=== PATIENT | female | born 1985 | race African-American/Black ===

== ENCOUNTER 2016-12-19 16:18 | Emergency (ER) | payer OTHER ==
[2016-12-19 16:25] VITALS: BP 121/73; PULSE 77; TEMP 98.3; BMI 20.9
--- NOTE | 2016-12-19 17:34 | PDOC ---
History of Present Illness - General Chief Complaint: Blood/Body Fluid Exposure SJR Stated Complaint: NEEDLE STICK Time Seen by Provider: 12/19/16 17:29 - History of Present Illness Initial Comments: 12/19/16 18:21 Pt. is a 31 y/o female with no PMH who presents to the ED after being stuck by a needle at work. Pt. is concerned because she knows that the needle was dirty and that the pt who used the needle has HEP C. She presents for post exposure labs. She was stuck in the R hand. Pt did not see blood after the stick. She immediately washed her hand. Denies hand pain, fevers, chills, nausea, vomiting , or recent illness. Tetanus and Hep B are up to date. Past History - Past Medical History Allergies/Adverse Reactions: Allergies Allergy/AdvReac Type Severity Reaction Status Date / Time No Known Allergies Allergy Verified 12/19/16 16:22 Home Medications: Ambulatory Orders NK [No Known Home Medication] 12/19/16 Other medical history: DENIES. - Psycho/Social/Smoking Cessation Hx Suicidal Ideation: No Smoking History: Never smoked *Physical Exam - Vital Signs Last Vital Signs Temp Pulse Resp BP Pulse Ox 98.3 F 77 19 121/73 100 12/19/16 16:22 12/19/16 16:22 12/19/16 16:22 12/19/16 16:22 12/19/16 16:22 - Physical Exam General Appearance: Yes: Nourished, Appropriately Dressed. No: Apparent Distress Extremity: positive: Normal Capillary Refill, Normal Inspection, Normal Range of Motion Integumentary: positive: Normal Color, Dry, Warm. negative: Other (no obvious bleeding from her R hand.) ED Treatment Course - LABORATORY CBC & Chemistry Diagram: 12/19/16 17:50 12/19/16 17:50 Medical Decision Making - Medical Decision Making 12/19/16 18:21 Pt. is a 31 y/o female with no PMH who presents to the ED after being stuck by a needle at work. Pt. is concerned because she knows that the needle was dirty and that the pt who used the needle has HEP C. Will initiate Exposure order set. Pt refuses prophylaxis treatment. Tetanus shot is UTD. 12/19/16 20:07 HIV testing is negative at this time. Explained that the Hep panels are send outs and will not have results tonight. Pt. knows to call back in the next few days. Gave pt. follow up with the [facility]. She states she will follow with her PCP. Pt. states she is ready for discharge. All questions were answered and pt understands all discharge instructions. *DC/Admit/Observation/Transfer Diagnosis at time of Disposition: Needle stick injury, Exposure to blood or body fluid - Discharge Dispostion Disposition: HOME Condition at time of disposition: Good Admit: No - Referrals Referrals: STAFF,NOT ON [Primary Care Provider] - Radha Yen MD [Staff Physician] - - Patient Instructions Printed Discharge Instructions: How to Handle Body Fluid Exposure -- Healthcare Worker Additional Instructions: You were stuck by a needle today. Your testing was negative. Your hepatitis testing has not resulted yet as the test needs to be sent out. You can call to follow up with your results. Follow up with the [facility] for further testing. A doctors name from the center is in the referral section. Keep your hand clean and with antibiotic ointment over the area. Return to the ED if you have fevers, chills, nausea, vomiting, or any changes in your symptoms. - Post Discharge Activity Work/School Note: Back to Work
[2016-12-19 18:05] LABS: BASOPHIL 1.3 % (0-2.0); MCH 29.2 pg (25.7-33.7); MCHC 33.2 g/dl (32.0-36.0); MEAN PLT VOLUME 10.3 fl (7.5-11.1); NEUTROPHILS 46.3 % (42.8-82.8); PLATELET COUNT 194 K/MM3 (134-434); RDW 13.2 % (11.6-15.6); WHITE BLOOD COUNT 4.9 K/mm3 (4.0-10.0)
[2016-12-19 18:39] LABS: ALBUMIN 3.8 g/dl (3.4-5.0); ANION GAP 4 (8-16); BILIRUBIN,TOTAL 0.5 mg/dL (0.2-1.0); CO2 30 mmol/L (21-32); CREATININE 0.6 mg/dL (0.55-1.02); GLUCOSE,RANDOM 87 mg/dL (74-106); SGOT/AST 19 U/L (15-37); SGPT/ALT 27 U/L (12-78); TOT PROT 7.8 g/dl (6.4-8.2)
[2016-12-19 18:40] LABS: ALK PHOS 85 U/L (45-117)
[2016-12-19 18:51] LABS: HIV 1 & 2 AB NEGATIVE
[2016-12-19 18:52] LABS: HIV 1 AGp24 NEGATIVE
[2016-12-21 14:15] LABS: HEP B SURFACE AB Reactive (.)
== END 2016-12-19 20:29 | disposition home or self-care (01) ==
LOC: JERFT 16:18
DX: S61.432A Puncture wound without foreign body of left hand, initial encounter (principal); W46.1XXA Contact with contaminated hypodermic needle, initial encounter; Y93.F9 Activity, other caregiving; Y92.128 Other place in nursing home as the place of occurrence of the external cause; Y99.0 Civilian activity done for income or pay
CPT/HCPCS: 36415; 80053; 85025; 86704; 86706; 86803; 87340; 87389; 99281-25